=== PATIENT | male | born 2000 | race American Indian/Alaskan Native ===

== ENCOUNTER 2021-02-13 09:51 | Emergency (ER) | payer MEDICAID, SELFPAY ==
--- NOTE | 2021-02-13 10:26 | Emergency Department Report ---
ED Asthma HPI - General Chief Complaint: Dyspnea/Respdistress Stated Complaint: JIM PUI?: Yes Time Seen by Provider: 02/13/21 10:19 Source: patient, EMS Mode of arrival: Ambulatory Limitations: No Limitations - History of Present Illness Initial Comments: 20-year-old -Citizen Of [place] male presents to the emergency room for asthma flareup. Patient states that he ran out of his meds 2 weeks ago. He reports that his doctors office close down. He reports that he has not been vaccinated in wanting a Covid test. Patient states he was supposed to be tested when he left [place] but they did not do it. Patient denies any chest pain or shortness of breath. States he got to rounds of treatment in the EMS. It was noted that patient has low-grade fever. MD Complaint: "asthma attack" Asthma History: history of frequent attac Severity: moderate Context: ran out of meds Associated Symptoms: productive cough, fever - Related Data Current Asthma Therapy: inhaled bronchodilator Previous Rx's Medication Instructions Recorded Last Taken Type Ibuprofen [Motrin] 600 mg PO Q8H PRN #20 tablet 02/11/18 Unknown Rx Albuterol Sulfate [Albuterol 0.63% 0.63 mg IH TID PRN #270 ml 02/13/21 Unknown Rx NEBS] Albuterol Sulfate [Proventil Hfa] 6.7 gm IH QID PRN #1 hfa.aer.ad 02/13/21 Unknown Rx Azithromycin [Zithromax Z-AICHA] 250 mg PO DAILY #6 tab 02/13/21 Unknown Rx Prednisone [predniSONE 10 mg 10 mg PO .TAPER #1 tab.ds.pk 02/13/21 Unknown Rx (6-Day Pack, 21 Tabs)] Allergies Allergy/AdvReac Type Severity Reaction Status Date / Time No Known Allergies Allergy Unverified 02/11/18 20:00 ED Review of Systems ROS: Stated complaint: JIM Other details as noted in HPI ED Past Medical Hx - Past Medical History Previous Medical History?: Yes Hx Asthma: Yes - Social History Smoking Status: Never Smoker Substance Use Type: None - Medications Home Medications: Home Medications Medication Instructions Recorded Confirmed Last Taken Type Ibuprofen [Motrin] 600 mg PO Q8H PRN #20 tablet 02/11/18 Unknown Rx Albuterol Sulfate [Albuterol 0.63% 0.63 mg IH TID PRN #270 ml 02/13/21 Unknown Rx NEBS] Albuterol Sulfate [Proventil Hfa] 6.7 gm IH QID PRN #1 hfa.aer.ad 02/13/21 Unknown Rx Azithromycin [Zithromax Z-AICHA] 250 mg PO DAILY #6 tab 02/13/21 Unknown Rx Prednisone [predniSONE 10 mg 10 mg PO .TAPER #1 tab.ds.pk 02/13/21 Unknown Rx (6-Day Pack, 21 Tabs)] ED Physical Exam - General Limitations: No Limitations General appearance: alert, in no apparent distress - Head Head exam: Present: atraumatic, normocephalic - Eye Eye exam: Present: normal appearance - ENT ENT exam: Present: mucous membranes moist, normal external ear exam - Neck Neck exam: Present: normal inspection - Respiratory Respiratory exam: Present: normal lung sounds bilaterally. Absent: respiratory distress, accessory muscle use - Cardiovascular Cardiovascular Exam: Present: normal rhythm, tachycardia - GI/Abdominal GI/Abdominal exam: Present: soft, normal bowel sounds. Absent: distended, tenderness - Back Exam Back exam: Present: normal inspection, full ROM - Neurological Exam Neurological exam: Present: alert, oriented X3 - Psychiatric Psychiatric exam: Present: normal affect, normal mood - Skin Skin exam: Present: warm, dry, intact, normal color. Absent: rash ED Course Vital Signs 02/13/21 09:52 Temperature 100.1 F H Pulse Rate 120 H Respiratory 18 Rate Blood Pressure 112/62 [Left] O2 Sat by Pulse 96 Oximetry ED Medical Decision Making - Medical Decision Making 20-year-old -Citizen Of [place] male presents to the emergency room for asthma flareup. Patient states that he ran out of his meds 2 weeks ago. He reports that his doctors office close down. He reports that he has not been vaccinated in wanting a Covid test. Patient states he was supposed to be tested when he left [place] but they did not do it. Patient denies any chest pain or shortness of breath. States he got to rounds of treatment in the EMS. It was noted that patient has low-grade fever. Upper respiratory infection asthma flareup. Patient placed on steroids antibiotics and breathing treatment. Patient be referred to her primary care provider. Critical care attestation.: If time is entered above; I have spent that time in minutes in the direct care of this critically ill patient, excluding procedure time. ED Disposition Clinical Impression: Upper respiratory infection, Suspected COVID-19 virus infection, Asthma Disposition: HOME / SELF CARE / HOMELESS Is pt being admited?: No Does the pt Need Aspirin: No Condition: Stable Instructions: Asthma (ED), Upper Respiratory Infection, Adult, [id number], Asthma, Adult, [id number] Additional Instructions: Complete antibiotic and steroids. Use your albuterol nebulizer and inhaler as needed. Follow-up with a primary care provider I have listed several below for your convenience. I highly recommended she get tested for Covid. Your symptoms appear most consistent with a nonspecific viral syndrome. However, given this current pandemic, COVID-19 is in the differential of possibilities. Despite your previous negative COVID-19 test, I do recommend repeat outpatient Covid 19 testing. In the meantime, isolate/quarantine yourself and stay away from anyone who is elderly, immunocompromised or chronically ill. You can use ibuprofen every 6-8 hours and Tylenol every 4-8 hours, using the dosing on the back of the bottle, as needed for any fever or body aches. Return to the emergency department with any worsening of your symptoms, development of chest pain or shortness of breath, or with any acute distress. Prescriptions: Albuterol Sulfate [Albuterol 0.63% NEBS] 0.63 mg IH TID PRN #270 ml PRN Reason: Wheezing Prednisone [predniSONE 10 mg (6-Day Pack, 21 Tabs)] 10 mg PO .TAPER #1 tab.ds.pk Albuterol Sulfate [Proventil Hfa] 6.7 gm IH QID PRN #1 hfa.aer.ad PRN Reason: Wheezing Azithromycin [Zithromax Z-AICHA] 250 mg PO DAILY #6 tab Referrals: [id number] LUNA MD [Staff Physician] - 3-5 Days Forms: Work/School Release Form(ED) Time of Disposition: 10:27
[2021-02-13 10:32] VITALS: BP 128/80
== END 2021-02-13 10:41 | disposition home or self-care (01) ==
LOC: ED 09:51
DX: J06.9 Acute upper respiratory infection, unspecified (principal); Z20.822 Contact with and (suspected) exposure to COVID-19; J45.909 Unspecified asthma, uncomplicated; Z79.899 Other long term (current) drug therapy
CPT/HCPCS: 99283